=== PATIENT | female | born 1985 | race Caucasian/White ===

== ENCOUNTER → 2024-02-29 | Outpatient (CLI) | payer OTHER | LOC: M OUTALCOH 09:20 | PROVIDERS: ATTEND Psychiatry & Neurology Psychiatry | DX: F11.20 Opioid dependence, uncomplicated (principal) ==

== ENCOUNTER 2024-03-05 14:03 | Outpatient (RCR) | payer OTHER | END 2024-03-09 | LOC: M OUTALCOH 14:03 | PROVIDERS: ATTEND Psychiatry & Neurology Psychiatry | DX: F11.20 Opioid dependence, uncomplicated (principal) ==

== ENCOUNTER 2024-06-16 11:09 | Emergency (ER) | payer OTHER ==
[~2024-06-16] VITALS: Ht 170.2 cm; Wt 54.5 kg
[2024-06-16 11:19] VITALS: BP 117/74; TEMP 98.4; O2SAT 99
== END 2024-06-16 11:30 | disposition left against medical advice (07) ==
LOC: EDBD 11:09 → M ED 11:09
DX: Z53.21 Procedure and treatment not carried out due to patient leaving prior to being seen by health care provider (principal)